=== PATIENT | male | born 2000 | race Caucasian/White ===

== ENCOUNTER 2023-11-22 22:48 | Emergency (ER) | payer BC ==
[~2023-11-22] VITALS: Ht 170.2 cm; Wt 75.7 kg
[2023-11-22 23:13] VITALS: TEMP 98.1
[2023-11-22 23:58] LABS: APPEARANCE,URINE CLEAR (CLEAR); BILIRUBIN,URINE 1+ (NEGATIVE); BLOOD, URINE NEGATIVE Ery/uL (NEGATIVE); COLOR,URINE YELLOW (YELLOW); KETONES,URINE 3+ mg/dL (NEGATIVE); LEUKOCYTE ESTERASE ,URINE NEGATIVE (NEGATIVE); NITRITE, URINE NEGATIVE (NEGATIVE); PROTEIN,URINE TRACE mg/dl (NEGATIVE); UGLUCOSE NEGATIVE (NEGATIVE)
[2023-11-23 04:01] VITALS: BP 128/78; O2SAT 100
== END 2023-11-23 04:03 | disposition home or self-care (01) ==
LOC: ER 22:53
DX: N50.811 Right testicular pain (principal); Z71.1 Person with feared health complaint in whom no diagnosis is made; Z60.2 Problems related to living alone
CPT/HCPCS: 76870-TC